=== PATIENT | female | born 1975 | race Caucasian/White ===

== ENCOUNTER 2017-10-04 12:05 | Outpatient (CLI) | payer OTHER | END 2017-10-04 17:00 | disposition home or self-care (01) | LOC: SONOGRAMA 12:05 | DX: N84.0 Polyp of corpus uteri (principal) ==

== ENCOUNTER 2018-11-23 08:00 | Day surgery (SDC) | payer OTHER | END 2018-11-23 13:00 | disposition home or self-care (01) | LOC: CIR.AMB 08:00 | DX: O02.1 Missed abortion (principal); Z3A.01 Less than 8 weeks gestation of pregnancy ==

== ENCOUNTER 2019-04-04 15:00 | Day surgery (SDC) | payer OTHER ==
[2019-04-04] MEDS ORDERED: MULTIPLE VITAM1 EAC2 PO (15:56)
== END 2019-04-05 00:05 | disposition home or self-care (01) ==
LOC: CIR.AMB 15:00
DX: O02.1 Missed abortion (principal); Z3A.01 Less than 8 weeks gestation of pregnancy